=== PATIENT | female | born 1960 | race Caucasian/White ===

== ENCOUNTER → 2023-05-23 09:53 | Outpatient (CLI) | payer OTHER, SELFPAY ==
--- NOTE | ~2023-05-23 | MM_ITS ---
EXAMINATION: MM screening angel BI w jose HISTORY: Screening mammogram TECHNIQUE: Craniocaudal and mediolateral oblique 3-D tomosynthesis images were obtained and synthetic 2-D images were generated. CAD analysis was submitted and interpreted. COMPARISON: No prior mammogram is available for comparison at this institution. BREAST PARENCHYMAL COMPOSITION: There are scattered areas of fibroglandular density. FINDINGS: No suspicious mass, calcification, or architectural distortion are identified in either ronnie ast to suggest malignancy. IMPRESSION: 1. No mammographic evidence of malignancy. 2. Recommend routine screening mammography in one year. BI-RADS Category 1: Negative Reviewed, dictated and finalized at location A. [facility]
== END ==
PROVIDERS: PCP Nurse Practitioner Family; Visit Provider Nurse Practitioner Family
DX: Z12.31 Encounter for screening mammogram for malignant neoplasm of breast (principal)
CPT/HCPCS: 77063; 77067

== ENCOUNTER 2023-05-29 07:00 | Outpatient (NON) | payer OTHER, SELFPAY | END 2023-05-29 07:01 | disposition home or self-care (01) | PROVIDERS: PCP Nurse Practitioner Family; Visit Provider Internal Medicine Gastroenterology | DX: R19.5 Other fecal abnormalities (principal) | CPT/HCPCS: 88305 ==

== ENCOUNTER 2023-05-29 09:29 | Day surgery (SDC) | payer OTHER, SELFPAY ==
[2023-05-20 10:48] VITALS: BMI 36.7
[2023-05-21 08:15] VITALS: BMI 35.9
--- NOTE | 2023-05-29 11:05 | WPDANESEPPF ---
Anes - Initial Pre Proc Eval Procedure: Operation Date: 05/29/23 12:30 Proposed Procedures p Diagnostic Colonoscopy - Isidoro Chaney MD Date/Time: 05/29/23 11:05 Surgeon: Isidoro Chaney MD Pre Op Diagnosis: Other Fecal Abnormalities Patient Data Age: 63 Gender: F Height: 1.63 m Weight: 95 kg Allergies Allergy/AdvReac Type Severity Reaction Status Date / Time No Known Allergies Allergy Verified 05/29/23 10:58 Home Medications Medication Instructions Recorded Confirmed Type atorvastatin 20 mg tablet See Rx Instructions .Route 02/28/23 05/29/23 Rx .COMPLEX #90 tabs losartan 100 mg tablet See Rx Instructions .Route 02/28/23 05/29/23 Rx .COMPLEX #90 tabs cyclobenzaprine 5 mg tablet 5 mg PO DAILY PRN muscle spasm #90 03/15/23 05/29/23 Rx tabs levothyroxine 25 mcg tablet 25 mcg PO DAILY #90 tabs 03/15/23 05/29/23 Rx Patient hx anesthesia problems: none Family hx anesthesia problems: none Results Review: All pre-operative results and documents have been reviewed as part of the pre-operative evaluation. [facility] Past Medical History Medical History Carotid artery calcification Hyperlipidemia Muscle cramps Surgical History Surgical History H/O left wrist surgery History of back surgery History of Family History Family History Father Diabetes mellitus Grandparent Heart disease Social History Social History Smoking status: Never smoker Alcohol intake: current Alcohol use details: socially Substance use: never Substance use type: does not use Living arrangements: alone Spiritual care concerns: No Anes - Eval Final PreProcedure Day of Procedure 05/29/23 11:05 Patient weight: obese Heart: regular rate and rhythm Lungs: decreased breath sounds Airway: Mallampati scale class II Neurological: alert and oriented Last oral intake: >/= 8 hours ASA classification: III Emergent: no Anesthetic plan: proceed Anesthesia type and monitoring: general GIVS and standard monitoring Results Review: All pre-operative results and documents have been reviewed as part of the pre-operative evaluation. Informed Consent: The patient's anesthetic plan and its attendant risks and benefits were discussed with the patient/family/POA. Questions were solicited and answers provided to the satisfaction of the patient/family/POA.
[2023-05-29 11:07] VITALS: BP 116/73; PULSE 83; RESP 16; TEMP 37.5; O2SAT 96; BMI 36.8
[2023-05-29] MEDS: LACTATED RINGERS 1,000 ML 150 ML IV CONT (11:17)
--- NOTE | 2023-05-29 11:47 | PM.HPGS ---
History of Present Illness History of Present Illness Consent: Risks, benefits, and alternatives have been discussed and questions answered. Patient agrees to proceed with procedure. Chief complaint: Positive Cologuard test Narrative: Laura Banks is a 63 year old female presents for screening colonoscopy. Patient reports that her current weight appetite and bowel movements are normal. She was found to have a positive screening Cologuard is abdominal pain. She has had no bleeding. Family history noncontributory. Review of Systems Review of Systems: Review of systems noncontributory. [facility] Past Medical History Medical History Carotid artery calcification Hyperlipidemia Muscle cramps Surgical History Surgical History H/O left wrist surgery History of back surgery History of Family History Family History Father Diabetes mellitus Grandparent Heart disease Social History Social History Smoking status: Never smoker Alcohol intake: current Alcohol use details: socially Substance use: never Substance use type: does not use Living arrangements: alone Spiritual care concerns: No Meds Home Medications and Allergies Home Medications Medication Instructions Recorded Confirmed Type atorvastatin 20 mg tablet See Rx Instructions .Route 02/28/23 05/29/23 Rx .COMPLEX #90 tabs losartan 100 mg tablet See Rx Instructions .Route 02/28/23 05/29/23 Rx .COMPLEX #90 tabs cyclobenzaprine 5 mg tablet 5 mg PO DAILY PRN muscle spasm #90 03/15/23 05/29/23 Rx tabs levothyroxine 25 mcg tablet 25 mcg PO DAILY #90 tabs 03/15/23 05/29/23 Rx Allergies Allergy/AdvReac Type Severity Reaction Status Date / Time No Known Allergies Allergy Verified 05/29/23 10:58 Vital Signs Vital Signs - 24 hr 05/29/23 11:07 Temperature 99.5 F Pulse Rate 83 Respiratory Rate 16 Blood Pressure 116/73 Pulse Oximetry 96 Oxygen Delivery Room Air Exam Narrative: Physical exam reveals patient to be alert. Vital signs stable. HEENT is unremarkable. Patient is anicteric. Lungs are clear to auscultation and percussion. Heart is without murmur or extra sounds. Abdomen bowel sounds are present soft nontender with no organomegaly. Digital external rectal exam is normal. Assessment and Plan Assessment and plan (1) Positive colorectal cancer screening using Cologuard test: Code(s): R19.5 - Other fecal abnormalities Status: Acute Assessment and Plan: Patient had a positive Cologuard test. For this reason screening colonoscopy will be performed.
[2023-05-29 13:13] VITALS: BP 119/81; PULSE 81; RESP 14; O2SAT 98
--- NOTE | 2023-05-29 13:19 | WPDANESPN ---
Anes - Prog Note Post-Op Date/Time: 05/29/23 13:19 Cardiovascular status: normal Respiratory status: normal Airway patency: baseline Mental status: baseline Post-Op hydration status: normal Vital Signs: Last Vital Signs Temp 37.5 C 05/29/23 11:07 Pulse 81 05/29/23 13:13 Resp 14 05/29/23 13:13 BP 119/81 05/29/23 13:13 Pulse Ox 98 05/29/23 13:13 O2 Del Method Room Air 05/29/23 13:13 Pain Score (VAS): 0 I/O: Intake & Output 05/28/23 05/29/23 05/29/23 23:59 07:59 15:59 Intake Total 0 Balance 0 Patient Feedback: Patient satisfied with anesthetic care.
[2023-05-29 13:23] VITALS: BP 114/73; PULSE 78; RESP 15; O2SAT 96
[2023-05-29 13:33] VITALS: BP 126/92; PULSE 65; RESP 16; O2SAT 100
== END 2023-05-29 13:45 | disposition home or self-care (01) ==
PROVIDERS: PCP Family Medicine; Visit Provider Internal Medicine Gastroenterology
PROC: 0DJD8ZZ Inspection of Lower Intestinal Tract, Via Natural or Artificial Opening Endoscopic (ICD-10-PCS; CPT 45378; principal; 2023-05-29 12:30)
DX: R19.5 Other fecal abnormalities (principal); D12.2 Benign neoplasm of ascending colon; K64.8 Other hemorrhoids
CPT/HCPCS: 45385

== ENCOUNTER 2024-02-27 10:35 | Outpatient (CLI) | payer OTHER, SELFPAY ==
--- NOTE | ~2024-02-27 | MM_ITS ---
EXAMINATION: MM diagnostic angel LT w jose HISTORY: Left breast redness. Patient began experiencing discomfort following moving trees and pushes after rubbing against her chest in close. TECHNIQUE: Additional 3-D tomosynthesis images of the left breast were performed and synthetic 2-D im ages were generated. CAD analysis was submitted and interpreted. COMPARISON: 05/23/2023 BREAST PARENCHYMAL COMPOSITION: Not Dense: The breasts are almost entirely fatty. FINDINGS: The left breast is stable. No new masses, calcifications or architectural distortion in the left breast to suggest malignancy. IMPRESSION: 1. No mammographic evidence for malignancy in the left breast. 2. Routine yearly screening mammogram and regular clinical breast examination are recommended. BI-RADS Category 1: Negative Reviewed, dictated and finalized at location B. IMPRESSION: 1. No mammographic evidence for malignancy in the left breast. 2. Routine yearly screening mammogram and regular clinical breast examination a re recommended. BI-RADS Category 1: Negative
== END 2024-02-27 10:36 | disposition home or self-care (01) ==
PROVIDERS: PCP Physician Assistant Medical; Visit Provider Nurse Practitioner Family
DX: R23.4 Changes in skin texture (principal)
CPT/HCPCS: 77061; 77065; G0279

== ENCOUNTER 2024-08-11 15:37 | Outpatient (CLI) | payer OTHER, SELFPAY ==
--- NOTE | ~2024-08-11 | MM_ITS ---
EXAMINATION: MM screening angel BI w jose HISTORY: Screening TECHNIQUE: Craniocaudal and mediolateral oblique 3-D tomosynthesis images were obtained and synthetic 2-D images were generated. CAD analysis was submitted and interpreted. COMPARISON: 05/23/2023 BREAST PARENCHYMAL COMPOSITION: Not Dense. The breasts are almost entirely fatty. FINDINGS: There is no evidence of suspicious mass, calcification, or architectural distortion to sugg est malignancy in either breast. There has been no suspicious interval change. IMPRESSION: 1. No mammographic evidence of malignancy. 2. Recommend routine screening mammography in one year. BI-RADS Category 1: Negative Reviewed, dictated and finalized at location A.
== END 2024-08-11 15:38 | disposition home or self-care (01) ==
LOC: MICIMG 15:40
PROVIDERS: PCP Physician Assistant Medical; Visit Provider Physician Assistant Medical
DX: Z12.31 Encounter for screening mammogram for malignant neoplasm of breast (principal)
CPT/HCPCS: 77063; 77067

== ENCOUNTER 2024-10-15 12:42 | Outpatient (CLI) | payer MEDICARE, SELFPAY ==
--- NOTE | ~2024-10-15 | MR_ITS ---
MRI of the right knee Clinical history: Pain Technique: Coronal proton density and proton density-weighted images, sagittal proton-density and T2 fat-sat images, and axial proton-density fat-saturated images were acquired. Findings: Anterior and posterior cruciate ligaments are intact. Medial collateral ligament and the la teral collateral ligament complex are intact. Popliteus tendon is intact. Radial tear is present at the posterior root of the medial meniscus. No lateral meniscal tear evident . There is extensive grade IV chondromalacia patella with small areas of subchondral cystic change. The re is extensive grade IV chondromalacia the femoral trochlea. There is marked narrowing of the patell ofemoral joint space. There is diffuse grade IV chondromalacia on both sides of the medial compartmen t. There is patchy mild to moderate chondromalacia of the lateral femoral condyle. Extensive tricompa rtmental osteophyte formation is present. Extensor mechanism is intact. Moderate joint effusion present. Eijte-ge-colwillh Sheldon's cyst present . Impression: Radial tear at the posterior root of the medial meniscus. Severe tricompartmental osteoarthritis, as detailed above. Moderate joint effusion with small to moderate Sheldon's cyst. Reviewed, dictated and finalized at [facility]. Impression: Radial tear at the posterior root of the medial meniscus. Severe tricompartmental osteoarthritis, as detailed above. Moderate joint effusion with small to moderate Sheldon's cyst.
== END 2024-10-15 12:43 | disposition home or self-care (01) ==
LOC: GOSHIMG 12:43
PROVIDERS: PCP Physician Assistant Medical; Visit Provider Physician Assistant Medical
DX: M17.11 Unilateral primary osteoarthritis, right knee (principal); M25.461 Effusion, right knee
CPT/HCPCS: 73721